=== PATIENT | male | born 1990 | race Caucasian/White ===

== ENCOUNTER → 2016-05-13 | Outpatient (CLI) | payer SELFPAY | LOC: RAD 10:25 | PROVIDERS: ATTEND Orthopaedic Surgery | DX: M25.531 Pain in right wrist (principal); S62.184A Nondisplaced fracture of trapezoid [smaller multangular], right wrist, initial encounter for closed fracture; X58.XXXA Exposure to other specified factors, initial encounter ==

== ENCOUNTER 2017-08-04 07:59 | Emergency (ER) | payer SELFPAY ==
[2017-08-04 09:22] LABS: ABSOLUTE EOSINOPHILS # (AUTO) 0.1 10^3/uL (0.0-0.6); ABSOLUTE LYMPHOCYTES (AUTO) 1.9 10^3/uL (0.5-4.7); ABSOLUTE MONOCYTES (AUTO) 0.4 10^3/uL (0.1-1.4); ABSOLUTE NEUT (AUTO) 3.7 10^3/uL (1.7-8.2); BASOPHILS % (AUTO) 0.6 % (0-2); EOSINOPHILS % (AUTO) 1.3 % (0-6); HEMATOCRIT 45.5 % (37.9-51.0); HEMOGLOBIN 15.7 g/dL (13.5-17.0); MEAN CORPUSCULAR HEMOGLOBIN 28.6 pg (27.0-33.4); MEAN CORPUSCULAR HGB CONC 34.4 g/dL (32.0-36.0); MEAN CORPUSCULAR VOLUME 83 fl (80-97); MONOCYTES % (AUTO) 7.1 % (3-13); PLATELET COUNT 291 10^3/uL (150-450); RED BLOOD COUNT 5.48 10^6/uL (4.35-5.55); RED CELL DISTRIBUTION WIDTH 13.7 % (11.5-14.0); TOTAL CELLS COUNTED % (AUTO) 100 %; WHITE BLOOD COUNT 6.1 10^3/uL (4.0-10.5)
[2017-08-04 09:30] LABS: APPEARANCE,URINE CLEAR; BILIRUBIN,URINE NEGATIVE (NEGATIVE); COLOR,URINE YELLOW; GLUCOSE, URINE NEGATIVE (NEGATIVE); KETONES,URINE NEGATIVE (NEGATIVE); LEUKOCYTE ESTERASE,URINE NEGATIVE (NEGATIVE); NITRITE,URINE NEGATIVE (NEGATIVE); PROTEIN,URINE NEGATIVE (NEGATIVE); UROBILINOGEN,URINE NEGATIVE mg/dL (<2.0)
[2017-08-04] MEDS ORDERED: ONDANSETRON HCL INJ/PF 4 MG/2 ML SDV IV ONE (09:30)
[2017-08-04] MEDS ORDERED: NORMAL SALINE 1000 ML 1,000 ML IV ONE (09:30)
[2017-08-04] MEDS ORDERED: KETOROLAC TROMETHAMINE 60 MG/2 ML SDV IV ONE (09:30)
[2017-08-04 09:38] LABS: ALANINE AMINOTRANSFERASE 35 U/L (21-72); ALBUMIN 4.5 g/dL (3.5-5.0); ALKALINE PHOSPHATASE 99 U/L (38-126); ANION GAP 11 (5-19); ASPARTATE AMINO TRANSFERASE 27 U/L (17-59); BILIRUBIN,DIRECT 0.2 mg/dL (0.0-0.4); BILIRUBIN,TOTAL 0.5 mg/dL (0.2-1.3); BLOOD UREA NITROGEN 9 mg/dL (7-20); CARBON DIOXIDE 29 mmol/L (22-30); CHLORIDE 106 mmol/L (98-107); GLUCOSE 107 mg/dL (75-110); LIPASE 49.5 U/L (23-300); POTASSIUM 4.2 mmol/L (3.6-5.0); SODIUM 145.6 mmol/L (137-145); TOTAL PROTEIN 7.5 g/dL (6.3-8.2)
--- NOTE | 2017-08-04 09:49 | ER Document Report ---
ED General - General Mode of Arrival: Ambulatory Information source: Patient TRAVEL OUTSIDE OF THE [place] IN LAST 30 DAYS: No <SP BUENO - Last Filed: 08/04/17 14:47> <JUAN PABLO SAMPSON - Last Filed: 08/04/17 15:26> - General Chief Complaint: Flank Pain Stated Complaint: FLANK PAIN Time Seen by Provider: 08/04/17 08:40 Notes: Patient is a 26 year old male presenting to the emergency department complaining of left sided flank pain onset around 0700 today. Patient states he noticed the flank pain immediately after waking up. He describes the pain as sharp and constant which radiates into the abdomen. Patient associated symptoms include diarrhea x1 (onset yesterday), constipation onset this morning, intermittent nausea, and vomiting upon arrival to the emergency department. Patient denies hematuria, fevers, or penile discharge. (SP BUENO) - Related Data Allergies/Adverse Reactions: No Known Allergies Allergy (Verified 08/04/17 08:44) Past Medical History - General Information source: Patient - Social History Smoking Status: Never Smoker Frequency of alcohol use: None Drug Abuse: None Family History: Other - Kidney Stones Patient has suicidal ideation: No Patient has homicidal ideation: No - Immunizations Hx Diphtheria, Pertussis, Tetanus Vaccination: Yes <SP BUENO - Last Filed: 08/04/17 14:47> Review of Systems - Review of Systems Constitutional: No symptoms reported EENT: No symptoms reported Cardiovascular: No symptoms reported Respiratory: No symptoms reported Gastrointestinal: See HPI, Diarrhea, Nausea, Vomiting, Constipation Genitourinary: See HPI, Flank pain Male Genitourinary: No symptoms reported. denies: Penile discharge Musculoskeletal: No symptoms reported Skin: No symptoms reported Hematologic/Lymphatic: No symptoms reported Neurological/Psychological: No symptoms reported -: Yes All other systems reviewed and negative <SP BUENO - Last Filed: 08/04/17 14:47> Physical Exam <SP BUENO - Last Filed: 08/04/17 14:47> <JUAN PABLO SAMPSON - Last Filed: 08/04/17 15:26> - Vital signs Vitals: Temp Pulse Resp BP Pulse Ox 98.0 F 71 16 138/70 H 99 08/04/17 08:08 08/04/17 08:08 08/04/17 08:08 08/04/17 08:08 08/04/17 08:08 - Notes Notes: GENERAL: Alert, interacts well. No acute distress. HEAD: Normocephalic, atraumatic. EYES: Pupils equal, round, and reactive to light. Extraocular movements intact. ENT: Oral mucosa moist, tongue midline. NECK: Full range of motion. Supple. Trachea midline. LUNGS: Clear to auscultation bilaterally, no wheezes, rales, or rhonchi. No respiratory distress. HEART: Regular rate and rhythm. No murmurs, gallops, or rubs. ABDOMEN: Soft, LLQ tender to palpation. Non-distended. Slightly decreased bowel sounds. EXTREMITIES: Moves all 4 extremities spontaneously. NEUROLOGICAL: Alert and oriented x3. Normal speech. PSYCH: Normal affect, normal mood. SKIN: Warm, dry, normal turgor. No rashes or lesions noted. BACK: No CVA tenderness to percussion. (SP BUENO) Course - Laboratory Result Diagrams: 08/04/17 08:59 08/04/17 08:59 <SP BUENO - Last Filed: 08/04/17 14:47> - Laboratory Result Diagrams: 08/04/17 08:59 08/04/17 08:59 <JUAN PABLO SAMPSON - Last Filed: 08/04/17 15:26> - Re-evaluation Re-evalutation: 08/04/17 12:03 CBC unremarkable, CMP shows slightly elevated sodium at 145.6, unremarkable, lipase normal, urinalysis shows large blood but no signs of infection, CT scan of the abdomen and pelvis shows tiny obstructing calculus at the level of the ureterovesicular junction, mild fullness of the left pelvicalyceal system and left ureter to the level of the obstructing calculus. 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 This finding was explained to the patient and at bedside, they stated they have never noticed any abnormalities with his testicles, bedside testicular exam was performed and revealed bilaterally descended testicles without palpable abnormality. No evidence of undescended testicles at this time. Patient will be discharged home with recommendations to take ibuprofen, Flomax, Vicodin for breakthrough pain, Pyridium, drink plenty of water, urinate through a strainer and return to the emergency department for any new or concerning symptoms. (JUAN PABLO SAMPSON) - Vital Signs Vital signs: Temp Pulse Resp BP Pulse Ox 97.8 F 86 18 142/66 H 97 08/04/17 12:24 08/04/17 12:24 08/04/17 12:24 08/04/17 12:24 08/04/17 12:24 - Laboratory Laboratory results interpreted by me: 08/04/17 08/04/17 08:59 08:59 Sodium 145.6 H Urine Blood LARGE H Discharge <SP BUENO - Last Filed: 08/04/17 14:47> <JUAN PABLO SAMPSON - Last Filed: 08/04/17 15:26> - Discharge Clinical Impression: Left ureteral calculus Condition: Stable Disposition: HOME, SELF-CARE Additional Instructions: Kidney Stone You are passing or have passed a kidney stone. These stones are usually due to increased calcium or uric acid concentrations in your urine. Stones within the kidney itself are not painful. The pain occurs as the stone leaves the kidney to pass down the long tube, called the ureter, leading to the bladder. If the stone is small, it will usually pass by itself. Most patients can pass the stone at home. You will usually receive medications for pain, nausea or vomiting, and sometimes a medication to assist in passing the kidney stone. However, if the pain is very severe or if vomiting prevents you from taking oral pain medications, you may need to return for further treatment. Drink three or four quarts of fluids per day. You will be given pain medication (if needed) and urine strainers. Strain all your urine to see if the stone passes. If your doctor has asked you to bring the stone in for analysis, return with the stone once it has passed. Return if pain or vomiting become severe, if you develop a high fever, if you are unable to pass your urine, or if other unusual symptoms occur. I have prescribed Pyridium which is the same thing is Azo, you may take 200 mg ( 2 of the qzuo-chn-aqxstye pills) every 8 hours as needed for the next 3 days to help with pain. It will dye your urine a reddish orange color. Please also take ibuprofen 800 mg every 8 hours as needed for pain. If this does not control your pain you may take the hydrocodone as prescribed for breakthrough pain. Please also take the Flomax to help the stone pass more easily. Please return to the ED for any new or concerning symptoms. Prescriptions: Hydrocodone/Acetaminophen [[place] 5-325 mg Tablet] 1 tab PO Q4HP PRN #10 tablet PRN Reason: Phenazopyridine HCl [Pyridium 200 mg Tablet] 200 mg PO TID #7 tablet Tamsulosin HCl [Flomax 0.4 mg Cap.sr] 0.4 mg PO DAILY #7 cap.sr.24h Referrals: [facility] [Provider Group] - Follow up as needed Scribe Attestation: 08/04/17 15:25 I personally performed the services described in the documentation, reviewed and edited the documentation which was dictated to the scribe in my presence, and it accurately records my words and actions. (JUAN PABLO SAMPSON) Scribe Documentation - Scribe Written by Giae:: aNcho Matthews, 08/04/2017 09:56 acting as scribe for :: Romero <SP BUENO - Last Filed: 08/04/17 14:47>
[2017-08-04] MEDS ORDERED: HYDROMORPHONE HCL INJ/PF 2 MG/ML AMPULE IV ONE (10:56)
--- NOTE | 2017-08-04 11:03 | RADIOLOGY REPORT (SQ) ---
EXAM DESCRIPTION: CT LTD RENAL STONE PROTOCOL ON COMPLETED DATE/TIME: 08/04/2017 10:41 am REASON FOR STUDY: hematuria, left flank pain COMPARISON: None. TECHNIQUE: CT scan of the abdomen and pelvis performed without intravenous or oral contrast. Images reviewed with lung, soft tissue, and bone windows. Reconstructed coronal and sagittal MPR images revi ewed. All images stored on PACS. All CT scanners at this facility use dose modulation, iterative reconstruction, and/or weight based d osing when appropriate to reduce radiation dose to as low as reasonably achievable (ALARA). [facility]: Dose Right [facility]: CareDose [facility]: Dose Right [facility]: Teradose 4D [facility]: Smart NanoDetection Technology RADIATION DOSE: CT Rad equipment meets quality standard of care and radiation dose reduction techniq ues were employed. CTDIvol: 8.1 mGy. DLP: 493 mGy-cm.mGy. LIMITATIONS: None. FINDINGS: LOWER CHEST: No significant findings. No nodules or infiltrates. NON-CONTRASTED LIVER, SPLEEN, ADRENALS: Evaluation limited by lack of IV contrast. No identified sign ificant masses. PANCREAS: No masses. No peripancreatic inflammatory changes. GALLBLADDER: No identified stones by CT criteria. No inflammatory changes to suggest cholecystitis. RIGHT KIDNEY AND URETER: No suspicious masses. Assessment limited by lack of IV contrast. No signif icant calcifications. No hydronephrosis or hydroureter. LEFT KIDNEY AND URETER: No suspicious masses. Assessment limited by lack of IV contrast. No renal c alculi are identified. A tiny obstructing calculus is identified at the level of the uterovesical ju nction there is mild fullness of the left pelvocaliceal system and left ureter to the level of the obstructing calculus. AORTA AND RETROPERITONEUM: No aneurysm. No retroperitoneal masses or adenopathy. BOWEL AND PERITONEAL CAVITY: No obvious masses or inflammatory changes. No free fluid. APPENDIX: Normal. PELVIS, BLADDER, AND ABDOMINAL WALL:No abnormal masses. No free fluid. Bladder normal. BONES: No significant findings. OTHER: The right testicle appears to be undescended into the scrotal sac on the right. Left testicle appears to be within the scrotal sac. Clinical correlation is recommended. IMPRESSION: Tiny obstructing calculus at the level of the uterovesical junction on the left. No othe r renal or ureteric calculi are identified. The right testicle appears to be undescended into the sc rotal sac on the right. Clinical correlation is recommended. Other findings as noted above. COMMENT: Quality ID # [id number]: Final reports with documentation of one or more dose reduction techniques (e.g., Automated exposure control, adjustment of the mA and/or kV according to patient size, use of iterative reconstruction technique) TECHNICAL DOCUMENTATION: JOB ID: [id number] [employer]- All Rights Reserved Reading location - IP/workstation name: [email or web address]
[2017-08-04 12:29] VITALS: BP 142/66
== END 2017-08-04 12:29 | disposition home or self-care (01) ==
LOC: ER 07:59
DX: N20.1 Calculus of ureter (principal); R10.9 Unspecified abdominal pain; R19.7 Diarrhea, unspecified; K59.00 Constipation, unspecified; R11.2 Nausea with vomiting, unspecified
CPT/HCPCS: 99284; 96361; 96374; 96375; 36415; 83690; 85025; 80053; 81001; 76380; J1885; J1170; J2405; J7030

== ENCOUNTER 2017-08-07 01:52 | Emergency (ER) | payer SELFPAY ==
[2017-08-07] MEDS ORDERED: KETOROLAC TROMETHAMINE INJ/PF 30 MG/1 ML SDV IV ONE (02:20)
[2017-08-07] MEDS ORDERED: ONDANSETRON HCL INJ/PF 4 MG/2 ML SDV IV ONE (02:20)
--- NOTE | 2017-08-07 02:44 | ER Document Report ---
ED General - General Chief Complaint: Flank Pain Stated Complaint: FLANK PAIN Time Seen by Provider: 08/07/17 02:17 Notes: Patient is a 26-year-old male without chronic medical problems, diagnosed with a left UPJ stone 2 days ago who presents with recurrence of left-sided flank pain. The patient states that he had been doing very well as an outpatient until tonight when at approximately 1830 he began to develop a severe, throbbing , constant pain to the left flank. He states this feels very similar the pain that brought him to the emergency department 2 days ago. He notes associated nausea but no vomiting. He tried taking [employer] and it did not provide any improvement of his pain prompting him to come to the emergency department. Nothing seems to have worsened his pain since onset. He notes that he has been passing what appeared to be small sand crystals while straining his urine but he has not noted passage of an actual kidney stone. He denies any fever or constitutional symptoms. TRAVEL OUTSIDE OF THE [place] IN LAST 30 DAYS: No - Related Data Allergies/Adverse Reactions: No Known Allergies Allergy (Verified 08/04/17 08:44) Past Medical History - General Information source: Patient - Social History Smoking Status: Never Smoker Frequency of alcohol use: None Drug Abuse: None Lives with: Spouse/Significant other Family History: Reviewed & Not Pertinent, Other - Kidney Stones Patient has suicidal ideation: No Patient has homicidal ideation: No Renal/ Medical History: Denies: Hx Peritoneal Dialysis - Immunizations Hx Diphtheria, Pertussis, Tetanus Vaccination: Yes Review of Systems - Review of Systems Notes: Constitutional: Negative for fever. HENT: Negative for sore throat. Eyes: Negative for visual changes. Cardiovascular: Negative for chest pain. Respiratory: Negative for shortness of breath. Gastrointestinal: Positive for left flank pain and nausea Genitourinary: Negative for dysuria. Musculoskeletal: Negative for back pain. Skin: Negative for rash. Neurological: Negative for headaches, weakness or numbness. 10 point ROS negative except as marked above and in HPI. Physical Exam - Vital signs Vitals: Temp Pulse Resp BP Pulse Ox 98.0 F 55 L 16 163/92 H 99 08/07/17 01:56 08/07/17 01:56 08/07/17 01:56 08/07/17 01:56 08/07/17 01:56 Interpretation: Hypertensive, Bradycardic Notes: PHYSICAL EXAMINATION: GENERAL: Appears to be in obvious discomfort but no acute distress HEAD: Atraumatic, normocephalic. EYES: Pupils equal round and reactive to light, extraocular movements intact, sclera anicteric, conjunctiva are normal. ENT: nares patent, oropharynx clear without exudates. Moist mucous membranes. NECK: Normal range of motion, supple without lymphadenopathy LUNGS: Breath sounds clear to auscultation bilaterally and equal. No wheezes rales or rhonchi. HEART: Regular rate and rhythm without murmurs ABDOMEN: Soft, nontender, normoactive bowel sounds. No guarding, no rebound. No masses appreciated. Mild left CVA tenderness. EXTREMITIES: Normal range of motion, no pitting or edema. No cyanosis. NEUROLOGICAL: No focal neurological deficits. Moves all extremities spontaneously and on command. PSYCH: Normal mood, normal affect. SKIN: Warm, Dry, normal turgor, no rashes or lesions noted. Course - Re-evaluation Re-evalutation: 08/07/17 02:58 Patient presents with ongoing left flank pain after being seen 2 days ago and found to have a left small ureteral calculus at the UPJ. Patient states that his pain had been well controlled at home and he had not needed to take any medications to control his pain. He states however tonight he had a recurrence of the pain, took [employer] and had no improvement of the pain so came to the emergency room patient's pain has been completely controlled here in the emergency department after receiving 15 mg of IV Toradol. He no longer has any nausea and has tolerated oral intake without difficulty. Urinalysis does not show any signs of infection. I have instructed the patient to continue taking tamsulosin as prescribed and begin scheduled ibuprofen to prevent a recurrence of his symptoms as he did tonight. At this time will discharge with return precautions and follow-up recommendations. Verbal discharge instructions given a the bedside and opportunity for questions given. Medication warnings reviewed. Patient is in agreement with this plan and has verbalized understanding of return precautions and the need for primary care follow-up in the next 24-72 hours. - Vital Signs Vital signs: Temp Pulse Resp BP Pulse Ox 98.0 F 55 L 16 163/92 H 99 08/07/17 01:56 08/07/17 01:56 08/07/17 01:56 08/07/17 01:56 08/07/17 01:56 Discharge - Discharge Clinical Impression: Left flank pain, Left ureteral calculus Condition: Good Disposition: HOME, SELF-CARE Additional Instructions: Please continue to follow all discharge instructions from your prior hospitalization. Take ibuprofen 600 mg every 6 hours scheduled even if you are not having pain until you pass the stone. You may take [employer] for pain not controlled by ibuprofen. Return if you have worsening pain, persistent vomiting , or any other symptoms that are worrisome to you.
[2017-08-07 03:00] LABS: APPEARANCE,URINE CLEAR; BILIRUBIN,URINE NEGATIVE (NEGATIVE); CALCIUM OXALATE CRYSTALS,URINE FEW /HPF; COLOR,URINE AMBER; GLUCOSE, URINE NEGATIVE (NEGATIVE); KETONES,URINE 20 mg/dL (NEGATIVE); LEUKOCYTE ESTERASE,URINE NEGATIVE (NEGATIVE); NITRITE,URINE POSITIVE (NEGATIVE); PROTEIN,URINE 30 mg/dL (NEGATIVE); URINE SPECIFIC GRAVITY 1.029
[2017-08-07 03:49] VITALS: BP 144/72
== END 2017-08-07 03:40 | disposition home or self-care (01) ==
LOC: ER 01:52
DX: N20.1 Calculus of ureter (principal); R10.9 Unspecified abdominal pain
CPT/HCPCS: 99284; 81001; J1885; J2405

== ENCOUNTER 2019-01-05 18:52 | Emergency (ER) | payer OTHER ==
[2019-01-05 19:08] VITALS: BP 137/67
--- NOTE | 2019-01-05 19:51 | ER Document Report ---
HPI - HPI Time Seen by Provider: 01/05/19 19:43 Notes: Patient is a 28-year-old male no significant past medical history who presents complaining of nasal congestion/discharge, sinus pressure for the past month. Patient has been using conservative measures and ckpv-ssg-[id number] medications with minimal relief. Patient states he also started developing pain in his right upper jaw near the tooth #3 for the past several days as well. He has not noticed any obvious abscess or drainage. Denies drug allergies. He is able to eat and drink without difficulty otherwise. He is urinating normally. No other concerns or complaints. Denies any headache, fever, head injury, neck pain, sore throat, chest pain, palpitations, syncope, cough, shortness of breath, wheeze, dyspnea, abdominal pain, nausea/vomiting/diarrhea, urinary retention, dysuria, hematuria, or rash. - ROS Systems Reviewed and Negative: Yes All other systems reviewed and negative Past Medical History - Social History Smoking Status: Former Smoker Family History: Reviewed & Not Pertinent, Other - Kidney Stones Renal/ Medical History: Denies: Hx Peritoneal Dialysis - Immunizations Hx Diphtheria, Pertussis, Tetanus Vaccination: Yes Vertical Provider Document - CONSTITUTIONAL Agree With Documented VS: Yes Notes: PHYSICAL EXAMINATION: GENERAL: Well-appearing, well-nourished and in no acute distress. HEAD: Atraumatic, normocephalic. EYES: Pupils equal round and reactive to light, extraocular movements intact, sclera anicteric, conjunctiva are normal. ENT: EAC clear b/l. TM's intact b/l without erythema, fluid, or perforation. Nares patent and with clear/yellow discharge. oropharynx clear without exudates. No tonsilar hypertrophy or erythema. Moist mucous membranes. + mild rt maxillary sinus tenderness. Uvula midline. No palatine shift. No tongue protrusion. No respiratory compromise. Mouth: Poor dentition. + mild decay and mild gingivitis. No obvious abscess or discharge noted. No facial swelling. + tenderness to gum line area near #3. NECK: Normal range of motion, supple without lymphadenopathy. No rigidity/meningismus. LUNGS: Breath sounds clear to auscultation bilaterally and equal. No wheezes rales or rhonchi. HEART: Regular rate and rhythm without murmurs, rubs, gallops. NEUROLOGICAL: Cranial nerves grossly intact. Normal speech, normal gait. PSYCH: Normal mood, normal affect. SKIN: Warm, Dry, normal turgor, no rashes or lesions noted. - INFECTION CONTROL TRAVEL OUTSIDE OF THE [place] IN LAST 30 DAYS: No Course - Re-evaluation Re-evalutation: 01/05/19 19:49 Patient is an afebrile, well-hydrated, 41-year-old male who presents to the ED with dental pain, suspect nerve root etiology versus infection, and acute sinusitis. Vitals are acceptable. PE is otherwise unremarkable. No I&D, labs, or imaging warranted at this time based on H&P. I will send him home with a pre scription for amoxicillin. Low suspicion for any meningitis, sepsis, peritonsillar/pharyngeal abscess, respiratory compromise, Maxime's, temporal arteritis, or other emergent systemic condition at this time. Patient is aware this condition can change from initial presentation and he needs to monitor symptoms closely. Conservative measures otherwise for symptoms. Call to schedule an appointment with a dentist for further evaluation and management. Recheck with your PCM this week as well. Return to the ED with any worsening/concerning symptoms otherwise as reviewed in discharge. Patient is in agreement. - Vital Signs Vital signs: Temp Pulse Resp BP Pulse Ox 98.3 F 73 18 137/67 H 97 01/05/19 19:08 01/05/19 19:08 01/05/19 19:08 01/05/19 19:08 01/05/19 19:08 Discharge - Discharge Clinical Impression: Pain, dental Acute sinusitis Qualifiers: Sinusitis location: unspecified location Recurrence: non-recurrent Qualified Code(s): J01.90 - Acute sinusitis, unspecified Condition: Stable Disposition: HOME, SELF-CARE Additional Instructions: Maintain adequate fluid intake [place] and floss routinely tylenol/ibuprofen as needed alternating every 3 hours for fever/body ache over the counter cold medication as needed for symptoms Humidified air may help Wash your hands regularly Wear a mask when coughing F/u: with your PCM in 3-5 days for a recheck Schedule appointment with a dentist for further evaluation and management as well Return to the ED with any fever, altered mental status/behavior, chest pain, palpitations, syncope, headache, neck pain/stiffness, shortness of breath, chest pains, wheezing, drooling, trouble swallowing/breathing, abdominal pain, n/v/d, rash, or worsening/concerning symptoms otherwise. Prescriptions: Amoxicillin Trihydrate [Amoxil 875 mg Tablet] 1 tab PO BID #20 tablet Forms: Elevated Blood Pressure Referrals: [facility] [Provider Group] - Follow up as needed
== END 2019-01-05 20:01 | disposition home or self-care (01) ==
LOC: ER 18:52
DX: J01.90 Acute sinusitis, unspecified (principal); K08.89 Other specified disorders of teeth and supporting structures; R09.81 Nasal congestion; R09.89 Other specified symptoms and signs involving the circulatory and respiratory systems; R51 Headache; R68.84 Jaw pain; Z87.891 Personal history of nicotine dependence
CPT/HCPCS: 99283

== ENCOUNTER 2019-04-05 22:44 | Emergency (ER) | payer OTHER ==
[2019-04-05 23:15] VITALS: BP 147/74
[2019-04-05] MEDS ORDERED: DIPH/PERTUSS(ACELL)/TETANUS VAC/PF 0.5 ML SYR (>=10YO) IM ONE (23:34)
[2019-04-05] MEDS ORDERED: AMOXICILLIN TR/POT CLAVULANATE 500-125 MG TAB PO ONE (23:34)
[2019-04-05] MEDS ORDERED: AMOXICILLIN TRIHYD 250 MG CAPSULE PO ONE (23:34)
--- NOTE | 2019-04-05 23:42 | ER Document Report ---
HPI - HPI Patient complains to provider of: Dog bite Time Seen by Provider: 04/05/19 23:31 Onset: This evening Onset/Duration: Sudden Pain Level: Denies Context: Patient states he was playing with his dog and his dog bit him scratching his chin. Patient states animals immunizations are up-to-date. Patient with 1 cm laceration to the lower chin area, no active bleeding. Associated Symptoms: Other - Facial laceration Exacerbated by: Denies Relieved by: Denies Similar symptoms previously: No Recently seen / treated by doctor: No - ROS ROS below otherwise negative: Yes Systems Reviewed and Negative: Yes All other systems reviewed and negative - CONSTITUTIONAL Constitutional: DENIES: Fever - GASTROINTESTINAL Gastrointestinal: DENIES: Nausea - DERM Skin Problems: Laceration, Puncture Wound Past Medical History - General Information source: Patient - Social History Smoking Status: Current Every Day Smoker Frequency of alcohol use: Social Drug Abuse: None Occupation: [employer] Sho[employer] Family History: Reviewed & Not Pertinent, Other - Kidney Stones Patient has suicidal ideation: No Patient has homicidal ideation: No - Medical History Medical History: Negative Renal/ Medical History: Denies: Hx Peritoneal Dialysis Past Surgical History: Reports: Other - Facial surgery - Immunizations Hx Diphtheria, Pertussis, Tetanus Vaccination: Yes Vertical Provider Document - CONSTITUTIONAL Agree With Documented VS: Yes Exam Limitations: No Limitations General Appearance: WD/WN, No Apparent Distress - INFECTION CONTROL TRAVEL OUTSIDE OF THE [place] IN LAST 30 DAYS: No - HEENT HEENT: Normocephalic - NECK Neck: Normal Inspection - RESPIRATORY Respiratory: Breath Sounds Normal, No Respiratory Distress - CARDIOVASCULAR Cardiovascular: Regular Rate, Regular Rhythm - MUSCULOSKELETAL/EXTREMETIES Musculoskeletal/Extremeties: MAEW - NEURO Level of Consciousness: Awake, Alert, Appropriate Motor/Sensory: No Motor Deficit - DERM Integumentary: Warm, Dry, Laceration - 1 cm linear laceration to the lower chin, wound edges are closely approximated, no active bleeding Course - Re-evaluation Re-evalutation: 04/05/19 23:41 Offered patient wound closure, patient declines at this time. Discussed risk of infection as well as concerns about cosmesis. Patient declines any additional wound repair at this time. - Vital Signs Vital signs: Temp Pulse Resp BP Pulse Ox 98.1 F 75 20 147/74 H 100 04/05/19 23:13 04/05/19 23:13 04/05/19 23:13 04/05/19 23:13 04/05/19 23:13 Discharge - Discharge Clinical Impression: Dog bite Qualifiers: Encounter type: initial encounter Qualified Code(s): W54.0XXA - Bitten by dog, initial encounter Chin laceration Qualifiers: Encounter type: initial encounter Qualified Code(s): S01.81XA - Laceration without foreign body of other part of head, initial encounter Condition: Stable Disposition: HOME, SELF-CARE Instructions: Animal Bites ([facility]), Augmentin ([facility]), Prophylactic Antibiotic ([facility]), Tetanus Immunization Given ([facility]) Additional Instructions: Return immediately for any new or worsening symptoms Followup with your primary care provider, call tomorrow to make a followup appointment Cleanse wound daily with antibacterial soap and water Apply bacitracin to wound to help with healing Follow-up with plastic surgeon for any cosmetic concerns about appearance of wound Prescriptions: Amox Tr/Potassium Clavulanate [Augmentin 875-125 Tablet] 1 tab PO BID 5 Days tablet Naproxen [Naprosyn 250 Nmg Tablet] 1 tab PO BID #14 tablet Referrals: LISA JACKSON MD [ACTIVE STAFF] - Follow up as needed
== END 2019-04-06 00:22 | disposition home or self-care (01) ==
LOC: ER 22:44
DX: S01.85XA Open bite of other part of head, initial encounter (principal); W54.0XXA Bitten by dog, initial encounter; Y93.89 Activity, other specified; F17.200 Nicotine dependence, unspecified, uncomplicated; Z23 Encounter for immunization
CPT/HCPCS: 99282; 90471; 90715; J3490

== ENCOUNTER 2019-10-30 08:04 | Emergency (ER) | payer OTHER ==
[2019-10-30 08:08] VITALS: BP 153/73
--- NOTE | 2019-10-30 09:52 | ER Document Report ---
ED General - General Chief Complaint: Skin Problem Stated Complaint: RASH Primary Care Provider: MARK,CHANA [Primary Care Provider] - Follow up as needed Notes: Patient is a 28-year-old white male with no significant past medical history presents the emergency department the chief complaint of rash that began yesterday. He was weed eating some plants and shorts and slip on sandals and woke up today with a rash that started. He states at first it was pruritic and then has progressed to being painful with blisters. He states it is exactly in the areas of exposure. He denies any drainage or fevers. No chills or night sweats. No history of the same. No tongue or throat swelling. No difficulty breathing or trouble with secretions. TRAVEL OUTSIDE OF THE [place] IN LAST 30 DAYS: No - Related Data Allergies/Adverse Reactions: No Known Allergies Allergy (Verified 08/04/17 08:44) Past Medical History - Social History Smoking Status: Never Smoker Chew tobacco use (# tins/day): No Frequency of alcohol use: None Drug Abuse: None Family History: Reviewed & Not Pertinent, Other - Kidney Stones Patient has homicidal ideation: No Renal/ Medical History: Denies: Hx Peritoneal Dialysis Past Surgical History: Reports: Other - Facial surgery - Immunizations Hx Diphtheria, Pertussis, Tetanus Vaccination: Yes Review of Systems - Review of Systems Notes: As per HPI Physical Exam - Vital signs Vitals: Temp Pulse Resp BP Pulse Ox 98.3 F 68 16 153/73 H 100 10/30/19 08:07 10/30/19 08:07 10/30/19 08:07 10/30/19 08:07 10/30/19 08:07 - General General appearance: Appears well, Alert In distress: None - HEENT Head: Normocephalic, Atraumatic, Open wounds Eyes: Normal Conjunctiva: Normal Pharynx: Other - Patent airway, handling secretions well. No sublingual or submental swelling. No trismus Neck: Supple - Respiratory Respiratory status: No respiratory distress Chest status: Nontender Breath sounds: Normal Chest palpation: Normal - Cardiovascular Rhythm: Regular Heart sounds: Normal auscultation - Neurological Neuro grossly intact: Yes Cognition: Normal Orientation: AAOx4 - Psychological Associated symptoms: Normal affect, Normal mood - Skin Skin Color: Other - Erythematous areas exactly in line with the close the patient is wearing. Stops below the knee below the shorts line and stops abruptly where the slip on shoe meets the foot and rash edge. It is outlined by the shoe. Blistering appreciated overlying the areas of erythema that are small. Tenderness to palpation of the bullae. No cellulitis or proximal streaking. No drainage. Course - Re-evaluation Re-evalutation: 10/30/19 09:52 Patient with an obvious plant-based contact dermatitis after weed eating through brush with shorts and slip on shoes. The rash is patterned to the close he was wearing. Consistent with a contact dermatitis. Will be given a short course of oral steroids. Discussed use of Pepcid, Benadryl and other antihistamines per label instruction. Counseled him regarding the importance of outpatient follow- up and advised to return here or any ER immediately with any new, persistent or worsening symptoms. He verbalized understood and agreed. - Vital Signs Vital signs: Temp Pulse Resp BP Pulse Ox 98.3 F 68 16 153/73 H 100 10/30/19 08:07 10/30/19 08:07 10/30/19 08:07 10/30/19 08:07 10/30/19 08:07 Discharge - Discharge Clinical Impression: Contact dermatitis Qualifiers: Contact dermatitis type: unspecified Contact dermatitis trigger: unspecified trigger Qualified Code(s): L25.9 - Unspecified contact dermatitis, unspecified cause Condition: Stable Disposition: HOME, SELF-CARE Instructions: Contact Dermatitis ([facility]) Additional Instructions: Follow-up with your regular doctor in 2 to 3 days for reevaluation. Return here or any ER immediately with any new, persistent or worsening symptoms. You can use Benadryl at night per label instructions as it will make you drowsy. You can use nondrowsy antihistamines during the day like Claritin or Zyrtec per label instructions. You may also use Pepcid which is a medication for the stomach that acts similar to an antihistamine to assist this process. Please take the steroids as prescribed. Please follow-up in 2 to 3 days for reevaluati on. Please return here any ER immediately with any new, persistent or worsening symptoms. Prescriptions: Prednisone [Deltasone 20 mg Tablet] 40 mg PO DAILY #10 tablet Forms: Return to Work Referrals: [facility] [Primary Care Provider] - Follow up as needed
== END 2019-10-30 09:57 | disposition home or self-care (01) ==
LOC: ER 08:04
DX: L25.9 Unspecified contact dermatitis, unspecified cause (principal)
CPT/HCPCS: 99282